=== PATIENT | male | born 1945 | race Caucasian/White ===

== ENCOUNTER 2017-09-14 11:36 | Emergency (ER) | payer OTHER ==
[~2017-09-14] VITALS: Ht 167.6 cm; Wt 77.6 kg
[~2017-09-14 11:36] MED LIST: ASPIR 8181 MG PO; FISH OIL 1,001000 M2 PO; GLIPIZIDE ER10 MG PO; GLUCOPHAGE XR500 MG PO; HYTRIN 5 M5 MG/1 CAP PO; JANUVIA 50 MG T50 M1 PO; MILK THISTLE500 MG PO; NAPROSYN500 MG PO; PRAVASTATIN SOD20 MG PO; TENORMIN25 MG PO; TRAMADOL 50 MG50 MG PO
[2017-09-14] MEDS ORDERED: NAPROSYN500 MG PO (11:50)
[2017-09-14] MEDS ORDERED: WELLBUTRIN SR150 MG PO (11:50)
[2017-09-14 11:53] LABS: ABSOLUTE BASOPHILS 0.1 thou/uL (0.0-0.2); ABSOLUTE MONOCYTES 0.4 thou/uL (0.0-1.2); ABSOLUTE NEUTROPHILS 6.3 thou/uL (1.6-8.1); BASOPHILS 0.7 %; EOSINOPHILS 0.3 %; HEMATOCRIT 46.7 % (42.0-52.0); HEMOGLOBIN 15.5 gm/dL (14.0-18.0); LYMPHOCYTES 13.1 %; MCH 28.6 pg (26.0-34.0); MCHC 33.2 g/dL (28.0-37.0); MCV 86.1 fL (80.0-100.0); MONOCYTES 5.6 %; MPV 9.1 fl. (7.2-11.1); NUCLEATED RBCS 0 /100WBC; PLATELET COUNT* 215 thou/uL (150-400); POLYS 80.3 %; RBC 5.42 mil/uL (4.50-6.00); WBC 7.9 thou/uL (4.0-11.0)
[2017-09-14 12:01] LABS: ANION GAP 10 mmol/L (7-16); BUN 23 mg/dL (7-18); CALCIUM 9.4 mg/dL (8.5-10.1); CHLORIDE 93 mmol/L (98-107); CO2 28 mmol/L (21-32); CREATININE 1.1 mg/dL (0.6-1.3); GLUCOSE 498 mg/dL (70-99); POTASSIUM 5.1 mmol/L (3.5-5.1); SODIUM 131 mmol/L (136-145)
[2017-09-14 12:03] LABS: APTT 29.4 Seconds (25.0-31.3)
[2017-09-14 12:08] LABS: ALBUMIN 3.1 g/dL (3.4-5.0); ALKALINE PHOSPHATASE 92 U/L (46-116); SGOT 13 U/L (15-37); SGPT 17 U/L (30-65); TOTAL BILIRUBIN 0.4 mg/dL (<0.1-1.0); TOTAL PROTEIN 6.9 g/dL (6.4-8.2); TROPONIN-I LEVEL <0.06 ng/mL (<0.06)
[2017-09-14 12:52] VITALS: BP 114/71
--- NOTE | 2017-09-14 16:43 | EKG ---
[place] [address] ELECTROCARDIOGRAM REPORT Name: JER MIRELES Room: [facility]#: [id number] Admission: 09/14/17 Attend Phys: Discharge: 09/14/17 Date of : 49 Report #: [id number] THIS REPORT FOR: //name// [facility] ED Test Date: 2017-09-14 Test Time: 11:44:59 Pat Name: JER MIRELES Department: Room: Gender: M Nursing Resident: Dre WEINER : 1945 Requested By: Glynn Wu Order Number: [id number] MD: Danny Loera Measurements Intervals [place] Rate: 80 P: 69 PA: 217 QRS: 31 QRSD: 79 T: -60 QT: 392 QTc: 453 Interpretive Statements Sinus rhythm Borderline prolonged PA interval Consider left ventricular hypertrophy Tall R wave in V2, consider RVH or PMI Borderline T abnormalities, inferior leads ST elevation, consider anterior injury Compared to ECG 01/05/2017 12:21:01 T-wave abnormality now present Myocardial infarct finding still present ST (T wave) deviation still present Electronically Signed On 09-14-2017 16:43:09 LOCKER PLANT ATTENDANT by Danny Loera [email or web address] <ELECTRONICALLY SIGNED> By: Danny Loera MD, FACC 09/14/17 1643 1144 1144 Danny Loera MD, [facility] /EPI
== END 2017-09-14 12:56 | disposition home or self-care (01) ==
LOC: M.ERS 11:36
PROVIDERS: Family Medicine
DX: R53.1 Weakness (principal); I10 Essential (primary) hypertension; E11.9 Type 2 diabetes mellitus without complications; E78.00 Pure hypercholesterolemia, unspecified; I25.10 Atherosclerotic heart disease of native coronary artery without angina pectoris; M19.90 Unspecified osteoarthritis, unspecified site; F17.200 Nicotine dependence, unspecified, uncomplicated; Z86.73 Personal history of transient ischemic attack (TIA), and cerebral infarction without residual deficits; Z88.0 Allergy status to penicillin

== ENCOUNTER 2020-03-15 07:40 | Emergency (ER) | payer OTHER ==
[~2020-03-15] VITALS: Ht 165.1 cm; Wt 80.7 kg
[~2020-03-15 07:40] MED LIST changes: +WELLBUTRIN SR150 MG PO
[2020-03-15] MEDS ORDERED: ZOFRAN ODT4 MG SUBLING (09:21)
[2020-03-15] MEDS ORDERED: PERCOCET 5-3251 EACH PO (09:21)
[2020-03-15 09:53] VITALS: BP 154/89
== END 2020-03-15 09:54 | disposition home or self-care (01) ==
LOC: M.ERS 07:40
DX: S32.010A Wedge compression fracture of first lumbar vertebra, initial encounter for closed fracture (principal); S32.020A Wedge compression fracture of second lumbar vertebra, initial encounter for closed fracture; I10 Essential (primary) hypertension; E11.9 Type 2 diabetes mellitus without complications; E78.00 Pure hypercholesterolemia, unspecified; Z86.73 Personal history of transient ischemic attack (TIA), and cerebral infarction without residual deficits; Z88.0 Allergy status to penicillin; W01.0XXA Fall on same level from slipping, tripping and stumbling without subsequent striking against object, initial encounter; Y93.89 Activity, other specified; Y92.89 Other specified places as the place of occurrence of the external cause; Y99.8 Other external cause status

== ENCOUNTER 2020-03-16 19:13 | Inpatient (IN) | payer OTHER ==
[~2020-03-16] VITALS: Ht 167.6 cm; Wt 76.2 kg
--- NOTE | ~2020-03-16 | PROC ---
[address] [address] PROCEDURE REPORT Name: JER MIRELES Room: [address] IN M.R.#: [id number] Admission: 03/16/20 Attend Phys: Reed Anderson MD Discharge: 04/01/20 Date of : 49 Report #: [id number] THIS REPORT FOR: //name// cc: Skylar Castellanos Jolie Rae DO ~ THIS REPORT FOR: //name// For GI report, please see the Provation report in Perceptive 7 content. By: 1056Medical Records Staff LORI /TOÑITO
[~2020-03-16 19:13] MED LIST changes: +PERCOCET 5-3251 EACH PO; +ZOFRAN ODT4 MG SUBLING
[2020-03-16 19:18] VITALS: BP 190/103
[2020-03-16 19:44] LABS: ABSOLUTE EOSINOPHILS 0.1 thou/uL (0.0-0.7); ABSOLUTE LYMPHOCYTES 0.9 thou/uL (0.8-5.3); ABSOLUTE MONOCYTES 0.7 thou/uL (0.0-1.2); ABSOLUTE NEUTROPHILS 5.7 thou/uL (1.6-8.1); BASOPHILS 0.5 %; EOSINOPHILS 1.3 %; HEMATOCRIT 45.6 % (42.0-52.0); HEMOGLOBIN 15.6 gm/dL (14.0-18.0); LYMPHOCYTES 12.5 %; MCH 28.4 pg (26.0-34.0); MCHC 34.2 g/dL (28.0-37.0); MONOCYTES 9.6 %; NUCLEATED RBCS 0 /100WBC; PLATELET COUNT* 197 thou/uL (150-400); POLYS 76.1 %; RDW-CV 15.5 % (10.5-14.5); WBC 7.5 thou/uL (4.0-11.0)
[2020-03-16 19:54] LABS: CALCIUM 9.3 mg/dL (8.5-10.1); INR 1.1
[2020-03-16 20:05] LABS: ALBUMIN 3.2 g/dL (3.4-5.0); TOTAL BILIRUBIN 0.8 mg/dL (<0.1-1.0); TOTAL PROTEIN 7.8 g/dL (6.4-8.2)
[2020-03-16 20:37] LABS: URINE BILIRUBIN NEGATIVE (Negative); URINE BLOOD 2+ (Negative); URINE CLARITY CLEAR; URINE COLOR YELLOW; URINE GLUCOSE-RANDOM NEGATIVE (Negative); URINE KETONES NEGATIVE (Negative); URINE LEUKOCYTES-REFLEX NEGATIVE (Negative); URINE NITRITE-REFLEX NEGATIVE (Negative); URINE PROTEIN TRACE (Negative); URINE SPECIFIC GRAVITY >= 1.030 (1.005-1.030)
[2020-03-16 20:45] LABS: BACTERIA-REFLEX 1-9 Few /HPF (None Seen); HYALINE CASTS 0-3 Few /LPF (None Seen); MUCUS None Seen strn/LPF (None Seen); SQUAMOUS 0-3 Few /LPF (0-3)
[2020-03-16 20:46] LABS: CRYSTALS None Seen /LPF (None Seen); URINE RBC 0-2 Rare /HPF (0-2); URINE WBC-REFLEX 0-5 Rare /HPF (0-5)
[2020-03-16 21:02] LABS: BE 3.7 mmol/L (-2 to +3); PCO2 47.6 mmHg (35.0-45.0); pH 7.408 (7.340-7.450)
[2020-03-16 21:03] LABS: PO2 52.8 mmHg (75.0-100.0)
[2020-03-17] VITALS (8 sets, daily range): BP systolic 147–202; BP diastolic 83–116
[2020-03-17 00:43] LABS: BE 2.2 mmol/L (-2 to +3); PO2 81.6 mmHg (75.0-100.0); pH 7.336 (7.340-7.450)
[2020-03-17 00:44] LABS: PCO2 56.6 mmHg (35.0-45.0)
[2020-03-17 12:11] LABS: ALBUMIN 2.8 g/dL (3.4-5.0); CALCIUM 8.8 mg/dL (8.5-10.1); CREATININE 0.8 mg/dL (0.6-1.3); MAGNESIUM 1.9 mg/dL (1.8-2.4); PHOSPHORUS* 2.9 mg/dL (2.5-4.9)
--- NOTE | 2020-03-17 12:39 | EKG ---
[place] [address] ELECTROCARDIOGRAM REPORT Name: JER MIRELES Room: [address] IN M.R.#: [id number] Admission: 03/16/20 Attend Phys: Reed Anderson, Discharge: Date of : 49 Date of Service: 03/16/201924 Report #: [id number] THIS REPORT FOR: //name// [facility] ED Test Date: 2020-03-16 Test Time: 19:25:32 Pat Name: JER MIRELES Department: Room: [facility] Gender: M Campus Recruiting Intern: JULIETA : 1945 Requested By: Nhi De Jesus Order Number: [id number] MD: Danny Loera Measurements Intervals [place] Rate: 98 P: 69 [place]: 190 QRS: 15 QRSD: 89 T: 168 QT: 347 QTc: 444 Interpretive Statements Sinus rhythm LAE, consider biatrial enlargement Abnormal R-wave progression, early transition LVH with secondary repolarization abnormality Baseline wander in lead(s) II,aVF Compared to ECG 09/14/2017 11:44:59 Early repolarization now present Myocardial infarct finding no longer present T-wave abnormality no longer present ST (T wave) deviation no longer present Electronically Signed On 03-17-2020 12:38:56 CDT by Danny Loera [email or web address] <ELECTRONICALLY SIGNED> By: Danny Loera MD, [facility] 03/17/20 1238 24 24 Danny Loera MD, [facility] /EPI
[2020-03-17 12:57] LABS: ABSOLUTE EOSINOPHILS 0.1 thou/uL (0.0-0.7); ABSOLUTE LYMPHOCYTES 0.7 thou/uL (0.8-5.3); ABSOLUTE MONOCYTES 0.8 thou/uL (0.0-1.2); ABSOLUTE NEUTROPHILS 5.7 thou/uL (1.6-8.1); BASOPHILS 0.2 %; EOSINOPHILS 0.8 %; HEMOGLOBIN 14.6 gm/dL (14.0-18.0); LYMPHOCYTES 9.8 %; MCH 28.2 pg (26.0-34.0); MCHC 33.8 g/dL (28.0-37.0); MCV 83.5 fL (80.0-100.0); MONOCYTES 10.8 %; MPV 9.5 fl. (7.2-11.1); NUCLEATED RBCS 0 /100WBC; PLATELET COUNT* 199 thou/uL (150-400); POLYS 78.4 %; RBC 5.15 mil/uL (4.50-6.00); RDW-CV 15.6 % (10.5-14.5); WBC 7.2 thou/uL (4.0-11.0)
[2020-03-17 13:01] LABS: CALCIUM 8.6 mg/dL (8.5-10.1); CREATININE 0.9 mg/dL (0.6-1.3)
[2020-03-17 13:06] LABS: ALBUMIN 2.8 g/dL (3.4-5.0); TOTAL BILIRUBIN 0.6 mg/dL (<0.1-1.0); TOTAL PROTEIN 6.8 g/dL (6.4-8.2)
--- NOTE | 2020-03-17 18:51 | NUR ---
PT VERY IMPULSIVE, CLIMBING OUT OF THE BED MULTIPLE TIMES TODAY. DOES NOT EMPTY BLADDER WELL WHEN LYING OR SITTING, STANDING HE DOES MUCH BETTER, CAN URINATE ABOUT 300 MLS EACH TIME. PT WITH IVF INFUSING, VSS. PT TO BE NPO AFTER MIDNIGHT FOR MRCP AND POSSIBLE KYPHOPLASTY.
[2020-03-18] VITALS (9 sets, daily range): BP systolic 141–198; BP diastolic 70–117
[2020-03-18 05:10] LABS: ABSOLUTE EOSINOPHILS 0.1 thou/uL (0.0-0.7); ABSOLUTE LYMPHOCYTES 1.1 thou/uL (0.8-5.3); ABSOLUTE MONOCYTES 0.9 thou/uL (0.0-1.2); ABSOLUTE NEUTROPHILS 6.5 thou/uL (1.6-8.1); BASOPHILS 0.4 %; EOSINOPHILS 0.7 %; HEMATOCRIT 46.2 % (42.0-52.0); HEMOGLOBIN 15.6 gm/dL (14.0-18.0); LYMPHOCYTES 12.6 %; MCH 28.3 pg (26.0-34.0); MCHC 33.8 g/dL (28.0-37.0); MCV 83.8 fL (80.0-100.0); MONOCYTES 10.1 %; NUCLEATED RBCS 0 /100WBC; PLATELET COUNT* 236 thou/uL (150-400); POLYS 76.2 %; RBC 5.52 mil/uL (4.50-6.00); RDW-CV 15.8 % (10.5-14.5); WBC 8.5 thou/uL (4.0-11.0)
[2020-03-18 05:46] LABS: ALBUMIN 3.4 g/dL (3.4-5.0); CREATININE 0.9 mg/dL (0.6-1.3); MAGNESIUM 1.9 mg/dL (1.8-2.4); POTASSIUM 3.4 mmol/L (3.5-5.1); TOTAL BILIRUBIN 0.9 mg/dL (<0.1-1.0); TOTAL PROTEIN 7.8 g/dL (6.4-8.2)
--- NOTE | 2020-03-18 12:23 | NUR ---
ASSUMED CARE OF PATIENT THIS AM AT 0730. PATIENT IS ALERT CONFUSED ORIENTED TO PERSON THIS AM. PATIENT WAS ATTEMPTING TO GET OUT OF THE BED. PATIENT PLACED ON 1;1 observation FOR PATIENT SAFETY. HE C/O PAIN TO HIS LEFT RIB AREA. PATIENT MEDICATED FOR PAIN IV X 1. PATIENT TAKEN DOWN PER W/C FOR MRCP AND MRI. PATIENT RETURNED TO ROOM. HIS IS IN AT THE BEDSIDE AT THIS TIME. PATIENT STATED THAT THE PAIN WAS LESS AFTER PAIN MEDICATION. IV FLUIDS RESUMED. TELE SHOWS SINUS TACHY. NO FALLS OR INJURY. O2 SATS DECREASE TO UPPER 80S TO LOW 90S WHEN PATIENT IS SLEEPING.
--- NOTE | 2020-03-18 15:14 | NUR ---
CM spoke with Pt's via phone. Pt resides at home with his . assists with bathing and grooming. Pt able to walk independently. Hx of falls. Pt has a walker, RW and wc at home. No home o2, thinks that Pt needs home o2, CM informed that Pt [place] be tested [place]2 needs [place]. Pt has a cpap. No hx of HH or SNF. Goal is home at [place]. Dr's PCP, is Dr Samayoa at [facility]. Following.
[2020-03-19 04:00] VITALS: BP 170/110
[2020-03-19 04:44] LABS: ABSOLUTE EOSINOPHILS 0.1 thou/uL (0.0-0.7); ABSOLUTE LYMPHOCYTES 0.8 thou/uL (0.8-5.3); ABSOLUTE MONOCYTES 0.7 thou/uL (0.0-1.2); ABSOLUTE NEUTROPHILS 5.5 thou/uL (1.6-8.1); BASOPHILS 0.4 %; EOSINOPHILS 1.4 %; HEMATOCRIT 42.3 % (42.0-52.0); HEMOGLOBIN 14.6 gm/dL (14.0-18.0); LYMPHOCYTES 11.6 %; MCH 28.2 pg (26.0-34.0); MCHC 34.4 g/dL (28.0-37.0); MCV 81.9 fL (80.0-100.0); MONOCYTES 9.4 %; NUCLEATED RBCS 0 /100WBC; PLATELET COUNT* 210 thou/uL (150-400); POLYS 77.2 %; RBC 5.17 mil/uL (4.50-6.00); RDW-CV 15.7 % (10.5-14.5); WBC 7.1 thou/uL (4.0-11.0)
[2020-03-19 04:55] LABS: ALBUMIN 2.7 g/dL (3.4-5.0); CALCIUM 8.3 mg/dL (8.5-10.1); CREATININE 0.7 mg/dL (0.6-1.3); MAGNESIUM 1.7 mg/dL (1.8-2.4); PHOSPHORUS* 2.5 mg/dL (2.5-4.9); POTASSIUM 3.3 mmol/L (3.5-5.1)
--- NOTE | 2020-03-19 07:20 | NUR ---
BP ELEVATED WITH Q4 CHECKS, MEDICATION GIVEN ACCORDINGLY. BP WNL WITH MEDICATION. WILL ADDRESS WITH ONCOMING SHIFT. SEE MAR. SEE CHARTING.
[2020-03-19 08:00] VITALS: BP 170/85
[2020-03-19 09:51] LABS: ALBUMIN 2.7 g/dL (3.4-5.0); CALCIUM 8.4 mg/dL (8.5-10.1); CREATININE 0.7 mg/dL (0.6-1.3); POTASSIUM 3.4 mmol/L (3.5-5.1); TOTAL BILIRUBIN 0.8 mg/dL (<0.1-1.0); TOTAL PROTEIN 6.7 g/dL (6.4-8.2)
[2020-03-19] MEDS ORDERED: TERAZOSIN HCL5 MG PO (10:16)
[2020-03-19] MEDS ORDERED: ATENOLOL 25MG T25 M1 PO (10:16)
[2020-03-19 11:30] VITALS: BP 163/93
[2020-03-19 16:00] VITALS: BP 177/102
--- NOTE | 2020-03-19 18:30 | NUR ---
PT PLEASANTLY CONFUSED THROUGHOUT SHIFT. PT UP IN ROOM AND HALLS WITH SB ASSIST. AT BS AND PARTICPATES IN CARE. KYPHOPLASTY RESCHEDULED FOR AM. PT AND UPDATED. PT TOLERATED CLEAR LIQUIDS THIS PM. DENIES N/V OR PAIN
[2020-03-19 20:00] VITALS: BP 161/107
[2020-03-20] VITALS: BP 160/75
[2020-03-20 04:00] VITALS: BP 168/65
[2020-03-20 04:26] LABS: ABSOLUTE EOSINOPHILS 0.1 thou/uL (0.0-0.7); ABSOLUTE MONOCYTES 0.7 thou/uL (0.0-1.2); ABSOLUTE NEUTROPHILS 4.6 thou/uL (1.6-8.1); BASOPHILS 0.6 %; EOSINOPHILS 2.1 %; HEMATOCRIT 44.3 % (42.0-52.0); HEMOGLOBIN 15.3 gm/dL (14.0-18.0); LYMPHOCYTES 14.8 %; MCH 28.5 pg (26.0-34.0); MCHC 34.6 g/dL (28.0-37.0); MCV 82.4 fL (80.0-100.0); MONOCYTES 11.4 %; MPV 9.3 fl. (7.2-11.1); NUCLEATED RBCS 0 /100WBC; PLATELET COUNT* 235 thou/uL (150-400); POLYS 71.1 %; RBC 5.38 mil/uL (4.50-6.00); RDW-CV 15.3 % (10.5-14.5); WBC 6.4 thou/uL (4.0-11.0)
[2020-03-20 04:44] LABS: ALBUMIN 2.8 g/dL (3.4-5.0); CALCIUM 8.2 mg/dL (8.5-10.1); CREATININE 0.8 mg/dL (0.6-1.3); POTASSIUM 3.4 mmol/L (3.5-5.1); TOTAL BILIRUBIN 0.8 mg/dL (<0.1-1.0); TOTAL PROTEIN 6.7 g/dL (6.4-8.2)
--- NOTE | 2020-03-20 05:49 | NUR ---
ASSUMED PATIENT CARE AT 1900. PATIENT ALERT TO SELF AND SITUATION. SPOUSE AT BEDSIDE. IV PATENT TO FLUIDS. IV PAIN MEDICATION GIVEN ONE TIME TO HELP WITH BACK PAIN. NO OTHER COMLAINTS. NPO AT THIS TIME FOR PROCEDURES TO BE DONE TODAY.
[2020-03-20 08:04] VITALS: BP 168/65
--- NOTE | 2020-03-20 12:51 | NUR ---
Per , Pt to have MRCP and EGD today. Surgery not planning any interventions. Pt had a kyphoplasty this morning. Plan lap harmony tomorrow. Plan is home with HH at or. CM asked to order and overnight ox, per , she thinks that Pt needs home o2. Following.
--- NOTE | 2020-03-20 15:58 | NUR ---
PT GOT OUT OF BED WHEN LEFT THE ROOM AND DRESSED HIMSELF,REMOVED IV AND CALIBRATION CHECKER. STATES HE IS READY TO GO HOME. PT ORIENTED TO NAME AND PLACE. EASILY REDIRECTED. PT PLACED IN A GOWN,IV REINSERTED
[2020-03-20 16:52] VITALS: BP 163/95
--- NOTE | 2020-03-20 17:39 | NUR ---
PT HAD KYPHOPLASTY,ERCP AND EGD TODAY. UP IN ROOM WITH SB ASSIST. AT BS AND PARTICIPATES IN CARE. TOLERATING PO WELL. DENIES PAIN. REFUSES IVF PT IS DRINKING. PLAN FOR LAP MIRIAN IN AM.
[2020-03-20 20:00] VITALS: BP 146/93
[2020-03-21] VITALS: BP 126/94
[2020-03-21 04:00] VITALS: BP 153/90
[2020-03-21 04:51] LABS: ABSOLUTE LYMPHOCYTES 0.5 thou/uL (0.8-5.3); ABSOLUTE MONOCYTES 0.6 thou/uL (0.0-1.2); ABSOLUTE NEUTROPHILS 5.2 thou/uL (1.6-8.1); BASOPHILS 0.2 %; EOSINOPHILS 0.1 %; HEMATOCRIT 40.3 % (42.0-52.0); HEMOGLOBIN 13.7 gm/dL (14.0-18.0); LYMPHOCYTES 8.1 %; MCH 28.1 pg (26.0-34.0); MCV 82.8 fL (80.0-100.0); MONOCYTES 8.9 %; MPV 9.3 fl. (7.2-11.1); NUCLEATED RBCS 0 /100WBC; PLATELET COUNT* 238 thou/uL (150-400); POLYS 82.7 %; RBC 4.88 mil/uL (4.50-6.00); RDW-CV 15.1 % (10.5-14.5); WBC 6.3 thou/uL (4.0-11.0)
[2020-03-21 05:00] LABS: ALBUMIN 2.7 g/dL (3.4-5.0); CALCIUM 8.5 mg/dL (8.5-10.1); CREATININE 0.8 mg/dL (0.6-1.3); POTASSIUM 4.4 mmol/L (3.5-5.1); TOTAL BILIRUBIN 0.5 mg/dL (<0.1-1.0); TOTAL PROTEIN 6.4 g/dL (6.4-8.2)
--- NOTE | 2020-03-21 06:39 | NUR ---
ASSUMED CARE OF PT AFTER REPORT AT 1930. PT A&OX3. NOT ORIENTED TO TIME. VSS. PHYSICAL ASSESSMENT COMPLETED AND CHARTED. PT ON O2 AT 2L NC. MAINTAINED ON CAPNO. PT TRACING SR ON TELE. PT DENIES ANY PAIN. AT BS. PT INSTRUCTED NPO POST MIDNIGHT FOR SURGERY TODAY. COMMUNICATES UNDERSTANDING. PT ABLE TO SLEEP WELL ON BED. CALL LIGHT WITHIN REACH.
--- NOTE | 2020-03-21 07:45 | NUR ---
assumed pt care at 0715 am. report received from nurse. pt is aox4. on 2 l nc. o2 saturation 96%. vss. sinus rythm on the registered nurse maternal child. right forearm iv found infiiltrated. iv was removed and cotton ball applied on site with tape to secure. pt has been npo since midnight. pt left unit on 07:45 for lap harmony surgery accompanied by two OR nurses.
[2020-03-21 08:00] VITALS: BP 139/80
--- NOTE | 2020-03-21 12:29 | OP ---
[address] [address] OPERATIVE REPORT Name: JER MIRELES Room: [address] IN .R.#: [id number] Admission: 03/16/20 Attend Phys: Reed Anderson MD Discharge: Date of : 49 Report #: [id number] THIS REPORT FOR: //name// cc: Skylar Castellanos Jolie Rae DO ~ THIS REPORT FOR: //name// CC: Reed Castellanos DO DICTATED BY: Albert Leon DO DATE OF SERVICE: 03/21/2020 PREOPERATIVE DIAGNOSES: Acute cholecystitis with cholelithiasis and elevated liver enzymes. POSTOPERATIVE DIAGNOSES: Acute cholecystitis with cholelithiasis and elevated liver enzymes with hydrops of the gallbladder. FINDINGS: Dense adhesions which inroads the entire right upper quadrant, distended gallbladder packed with stones, thick walled, bile was clear indicative of gallbladder hydrops. SURGEON: Carmenza Narvaez DO. CO-SURGEON: Albert Leon, PGY5 SENIOR CLINICAL CONSULTANT: AURORA Bianchi. OPERATION PERFORMED: Laparoscopic cholecystectomy with lysis of adhesions of 30 minutes. ANESTHESIA: General, local and transversus abdominis plane block. ESTIMATED BLOOD LOSS: 10 mL. SPECIMEN: Gallbladder. COMPLICATIONS: None. INDICATIONS: The patient is a 75-year-old male that presented to the Emergency Department with intractable vomiting, status post fall. He had acute lower back pain and underwent kyphoplasty by Interventional Radiology. His bile ducts were noted to be elevated in the setting of cholelithiasis. He underwent an MRCP [facility] [address] [place] [address] OPERATIVE REPORT Name: JER MIRELES Jass Room: [address] IN [facility].#: [id number] Admission: 03/16/20 Attend Phys: Reed Anderson MD Discharge: Date of : 49 Report #: [id number] that showed enlarged bile ducts. He subsequently underwent ERCP with GI and was found to have increased size of the bile ducts; however, there were no obstructing stones or sludge. He did receive a sphincterotomy. The patient was informed of the risks and benefits of laparoscopic cholecystectomy with risks including but not limited to bleeding, infection, injury to common bile duct, need for reoperation, hernia formation, chronic pain, and chronic diarrhea. He understood these and decided to proceed with surgery. TECHNIQUE: After informed consent was obtained, the patient was brought to the operating room and placed in supine position. SCDs were on and running. Preoperative clindamycin was delivered. General anesthesia was administered with an ET tube. He had a moderately edematous vocal cords. The ET tube was passed with some difficulty. He was prepped and draped in the usual sterile fashion. A surgical pause was held to confirm proper patient and procedure. Superior to the umbilicus, a 0.5% Marcaine was injected, 11 blade was used to incise the skin. Dissection was carried through the subcutaneous tissue using cautery. S retractors were used to bluntly dissect down to the fascia, which was elevated with 2 Kochers. Fascia was incised using cautery. Peritoneum was bluntly entered using a Natalia. A 0 Vicryl was used for stay sutures on either side of the fascia. Felicia trocar was introduced and the abdomen was insufflated. The camera was introduced into the abdomen. There were dense omental adhesions over the liver and over the entire right upper quadrant. The patient was positioned head up and right side up. An additional 3 ports, 5 mm in size were placed, 1 in the epigastrium and 2 in the right upper quadrant, all under direct visualization. Hook cautery was then used to take down the omental adhesions starting on the lateral aspect of the liver and then taking down some adhesions to the liver and to the falciform ligament. Once the gallbladder was visualized, it was distended, thick walled and obviously inflamed. It was encased in omental adhesions. These were taken down with the plane between the gallbladder and the liver due to inflammation in this area. A small hole was made in the most distal aspect of the dome of the gallbladder and immediate egress of hydropic fluid was noted. The omental adhesions were finally completely lysed using cautery and blunt dissection revealing the body of the gallbladder. This was elevated over the liver. The cystic artery was visible and tenting up the peritoneum over the gallbladder and was on top of the cystic duct by visual inspection. The peritoneum overlying the cystic triangle was incised using cautery. This plane was developed laterally until all the way up to the body of the gallbladder. Blunt dissection was then used to identify the cystic duct and cystic artery and circumferentially dissect them. Once the cystic duct and cystic artery were completely dissected and there was a critical view of safety with only 2 structures entering the gallbladder, the cystic artery was doubly clipped and cut using laparoscopic scissors. The cystic duct was noted to be large, but was small enough to be adequately ligated with the same clip machine maintenance technician, so it was doubly clipped and cut using laparoscopic aliyah. The gallbladder was then elevated and dissected free from the liver bed. Once completely excised from the liver bed, it was placed in an [place] [address] OPERATIVE REPORT Name: JER MIRELES Room: [address]#: [id number] Admission: 03/16/20 Attend Phys: Reed Anderson MD Discharge: Date of : 49 Report #: [id number] placed aside. The right upper quadrant was thoroughly irrigated and suctioned. Cautery was used to obtain hemostasis at the liver bed. Clips were intact. There was no bleeding or bile leak. The liver bed was completely hemostatic. The patient was positioned supine. The right upper quadrant was suctioned and irrigated. The abdomen was desufflated. All ports were removed under direct visualization, Felicia port was removed as was the specimen. Previous stay sutures were elevated and replaced with 2 Kochers. A single of [id number] using 0 Vicryl was used to close the fascia. Additional Marcaine was injected. All skin was closed using 4-0 Monocryl. Wounds were cleansed and dressed with Dermabond. All counts were correct. The patient was transferred to the PACU after extubation in stable condition. <ELECTRONICALLY SIGNED> By: Carmenza Narvaez DO 03/21/20 1229 1025 1107Chvimal Narvaez DO /nt
--- NOTE | 2020-03-21 12:51 | NUR ---
pt came back from surgery. on 2 lnc. o2 saturation 95% . vss. see chart. denies pain. pt is aox2 to self and person. a little drowsy. four lap sites look intact , dry, no drainage, no bleeding. accucheck performed. pt denies n/v. clear liqud diet given. po meds administered as ordered. at bedside. warm compress applied on right upper extremitiy to diminish the swelling from the iv infiltration.call light at reach. will continue to monitor
[2020-03-21 13:22] VITALS: BP 147/85
--- NOTE | 2020-03-21 14:44 | NUR ---
Pt having lap harmony today
[2020-03-21 17:09] VITALS: BP 147/87
[2020-03-21 20:30] VITALS: BP 138/78
[2020-03-22] VITALS (8 sets, daily range): BP systolic 145–187; BP diastolic 86–96
--- NOTE | 2020-03-22 03:41 | NUR ---
AT 0300 PT'S INFORMED ME THAT PT NEEDED PAIN MEDICINE. STATED THAT PT IS TOUCHING ABDOMEN AND REPORTING PAIN. PT REPORTS PT IS RESTLESS AND CONFUSED AND NEEDS PAIN MEDICINE. PT GIVEN PRN FENTANYL AND ZOFRAN PER REQUEST. PT DESTAT TO 79%. O2 APPLIED AT 2 LITERS AND TITRATED TO 4 LITERS. UNHAPPY WITH SAT MONITOR AND END TIDAL CO2 MONITOR ALLARMING CONTINUOUSLY. EXPRESSED FRUSTRATION ABOUT NOT BEING ABLE TO SLEEP AND STATED PT'S CONFUSION IS WORSE THAN IT WAS PRIOR TO ADMIT. PT'S O2 SAT ON 4 LITERS >94%.
--- NOTE | 2020-03-22 03:57 | NUR ---
PT REQUESTED SAT MONITORS BE REMOVED TO ALLOW PT MORE FREEDOM OF MOVEMENT. RT REMOVED END TIDAL CO2 MONITORING AND LEFT CONTINUOUS PULSE OX ON.
--- NOTE | 2020-03-22 04:15 | NUR ---
SPOKE WITH DR ERVIN REGARDING PT'S INCREASED CONFUSION. RECIEVED ORDER FOR STAT CT OF HEAD. INFORMED PT'S REGARDING CAT SCAN. PT STATED PT FELL AT HOME PRIOR TO ADMIT AND HIT HIS HEAD. ORDER PLACED IN COMPUTER AT THIS TIME.
[2020-03-22 05:04] LABS: ABSOLUTE LYMPHOCYTES 1.1 thou/uL (0.8-5.3); ABSOLUTE MONOCYTES 0.9 thou/uL (0.0-1.2); ABSOLUTE NEUTROPHILS 8.1 thou/uL (1.6-8.1); BASOPHILS 0.4 %; EOSINOPHILS 0.2 %; HEMATOCRIT 42.4 % (42.0-52.0); HEMOGLOBIN 14.2 gm/dL (14.0-18.0); LYMPHOCYTES 10.7 %; MCH 27.9 pg (26.0-34.0); MCHC 33.5 g/dL (28.0-37.0); MCV 83.1 fL (80.0-100.0); MONOCYTES 9.3 %; MPV 9.4 fl. (7.2-11.1); NUCLEATED RBCS 0 /100WBC; PLATELET COUNT* 276 thou/uL (150-400); POLYS 79.4 %; RDW-CV 15.5 % (10.5-14.5); WBC 10.2 thou/uL (4.0-11.0)
--- NOTE | 2020-03-22 05:07 | NUR ---
CHIEF DIGITAL MEDIA OFFICER SCAN INFORMED REGARDING STAT ORDER, WAITING TO TAKE PT DOWN. RT REPORTS THAT PT'S NOCTERNAL OXYMETRY INVALID TEST DUE TO PT BEING AWAKE AND RESTLESS ALL NIGHT.
[2020-03-22 05:23] LABS: ALBUMIN 2.9 g/dL (3.4-5.0); CALCIUM 8.4 mg/dL (8.5-10.1); POTASSIUM 3.9 mmol/L (3.5-5.1); TOTAL BILIRUBIN 0.5 mg/dL (<0.1-1.0); TOTAL PROTEIN 6.6 g/dL (6.4-8.2)
[2020-03-22 05:54] LABS: PREALBUMIN 17.2 mg/dL (18.0-35.7)
--- NOTE | 2020-03-22 11:49 | NUR ---
CM spoke with Pt and at bedside. Plan continues to be for Pt to dc home. Ex ox to be completed prior to dc, if Pt qualifies for home o2, CM to arrange through [employer] f:[phone]. HH to be arranged through [facility], only wants PT. Joturl p:[phone] f:[phone]
--- NOTE | 2020-03-22 17:10 | PATH ---
[address] [address] PATHOLOGY RPT PROCEDURE Name: JER JACOBSEN Room: [address] IN .R.#: [id number] Admission: 03/16/20 Date of : 49 Discharge: Report #: [id number] Path Case #: [id number] [facility] Accession Number: [id number] . 01 Material submitted: . duodenum - DUODENAL NODULE 1ST PORTION DUODENUM . 01 Clinical history: . None provided . 02 Diagnosis: "Duodenal nodules first portion duodenum", biopsy: - Small bowel/duodenal mucosa with marked duodenitis showing marked reactive/regenerative changes and gastric metaplasia; no definitive dysplasia seen. (CLW:[facility] 03/22/2020) [facility] 03/22/2020 1422 Local . 02 Comment: The case is co-reviewed with Dr. Osei Vale. Clinical and endoscopic correlation is recommended. (CLW:[facility] 03/22/2020) . 02 Electronically signed: . Ya Varela MD, Pathologist NPI- [id number] . 01 Gross description: . The specimen is received in formalin, labeled "Jer Jacobsen, duodenal nodules first portion duodenum" and consists of 3 fragments of pink-morrison tissue measuring between 0.2 x 0.2 cm and 0.3 x 0.3 cm which are entirely submitted in A1. (SDY; 03/21/2020) SYU/SYU 03/21/2020 1318 Local . 02 Pathologist provided ICD-10: K29.80 . 02 CPT . 090690 Specimen Comment: A courtesy copy of this report has been sent to [phone], [phone] Specimen Comment: [phone], Specimen Comment: Report sent to ,DR BAR / DR DILLON Performed at: [address] [facility], [place] [id number] MD Reagan Rubio MD Phone: [phone] [place] [address] PATHOLOGY RPT PROCEDURE Name: JER JACOBSEN Room: [address] IN ..#: [id number] Admission: 03/16/20 Date of : 49 Discharge: Report #: [id number] Path Case #: [id number] Performed at: [facility] [address], [place] [id number] MD Alexander Vora MD Phone: [phone]
--- NOTE | 2020-03-22 17:10 | PATH ---
[address] [address] PATHOLOGY RPT PROCEDURE Name: JER JACOBSEN Room: [address] IN .R.#: [id number] Admission: 03/16/20 Date of : 49 Discharge: Report #: [id number] Path Case #: [id number] [facility] Accession Number: [id number] . 01 Material submitted: . gallbladder - GALLBLADDER . 01 Clinical history: . Acute cholecystitis with elevated liver enzymes . 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 - Cholelithiasis. - Lymph node with hyperplasia. . (CLW:mml; 03/22/2020) [facility] 03/22/2020 1157 Local . 02 Electronically signed: . Ya Varela MD, Pathologist NPI- [id number] . 01 Gross description: . The specimen is received in formalin labeled "Jer Jacobsen, gallbladder" and consists of a deflated pink morrison gallbladder measuring 7.9 x 3.8 x 1.5 cm. The margin is inked black. Opening reveals a lumen filled with clear viscous material and multiple intact to fragmented yellow orange calculi measuring up to 2.9 cm. The largest grossly occlude the proximal aspect. The mucosa is pink-morrison and smooth to pitted with an average wall thickness of 0.2 cm. No masses are identified. Adjacent the gallbladder neck is a lymph node measuring 0.8 cm. Climatologist sections are submitted in A1-A2. (SDY; 03/21/2020) SYU/SYU 03/22/2020 1157 Local . 02 Pathologist provided ICD-10: K80.12 . 02 CPT . 343832 Specimen Comment: A courtesy copy of this report has been sent to [phone], 9[facility] Specimen Comment: [phone], Specimen Comment: Report sent to ,DR BAR / DR DILLON Performed at: [address] [facility] [id number] [place] [address] PATHOLOGY RPT PROCEDURE Name: JER JACOBSEN Room: [address] IN [facility].#: [id number] Admission: 03/16/20 Date of : 49 Discharge: Report #: [id number] Path Case #: [id number] MD Reagan Rubio MD Phone: [phone] Performed at: 02 [facility] [place] [address] Dobson, [place] [id number] MD Alexander Vora MD Phone: [phone]
--- NOTE | 2020-03-22 19:59 | NUR ---
PT. VSS, AOX3, SR ON MONITOR, PAIN UNDER CONTROL. WITH SPOUSE AT BEDSIDE. UP WITH ASSIST PER PT. PLAN TO D/C TOMORROW WITH HOME O2. CALL LIGHT AND PERSONAL BELONGINGS PLACED WITHIN REACH. PT. IN BED, WITH SPOUSE AT BEDSIDE, IN NO APPARENT DISCOMFORT, AT SHIFT CHANGE.
[2020-03-22 23:21] LABS: ABSOLUTE LYMPHOCYTES 0.5 thou/uL (0.8-5.3); ABSOLUTE MONOCYTES 0.9 thou/uL (0.0-1.2); ABSOLUTE NEUTROPHILS 7.9 thou/uL (1.6-8.1); BASOPHILS 0.2 %; EOSINOPHILS 0.3 %; HEMATOCRIT 48.7 % (42.0-52.0); MCH 28.3 pg (26.0-34.0); MCHC 34.1 g/dL (28.0-37.0); MONOCYTES 9.9 %; MPV 8.7 fl. (7.2-11.1); NUCLEATED RBCS 0 /100WBC; PLATELET COUNT* 323 thou/uL (150-400); POLYS 84.6 %; RBC 5.86 mil/uL (4.50-6.00); RDW-CV 15.9 % (10.5-14.5); WBC 9.4 thou/uL (4.0-11.0)
[2020-03-22 23:23] LABS: HEMOGLOBIN 16.6 gm/dL (14.0-18.0)
[2020-03-22 23:25] LABS: CREATININE 0.9 mg/dL (0.6-1.3); POTASSIUM 4.4 mmol/L (3.5-5.1)
[2020-03-22 23:29] LABS: ALBUMIN 2.8 g/dL (3.4-5.0); MAGNESIUM 1.5 mg/dL (1.8-2.4); PHOSPHORUS* 3.9 mg/dL (2.5-4.9); TOTAL BILIRUBIN 0.6 mg/dL (<0.1-1.0); TOTAL PROTEIN 6.7 g/dL (6.4-8.2)
[2020-03-23] VITALS (7 sets, daily range): BP systolic 80–134; BP diastolic 50–77
[2020-03-23 05:18] LABS: BE -3.8 mmol/L (-2 to +3); PCO2 34.9 mmHg (35.0-45.0); PO2 92.8 mmHg (75.0-100.0); pH 7.383 (7.340-7.450)
--- NOTE | 2020-03-23 08:04 | NUR ---
ASSUMED CARE OF PT AFTER REPORT AT 1930. PT A&OX3. FORGETFUL. PHYSICAL ASSESSMENT COMPLETED AND CHARTED. PT COMPLAINED OF ABDOMINAL DISTENTION AND VOMITING GREENISH OUTPUT. SURGERY CONSULTED WITH NEW ORDERS. ABDOMINAL XRAY SHOW SMALL BOWEL OBSTRUCTION. NGT INSERTED WITH 1100 GREENISH OUTPUT WITHIN 15 MINS. PT O2 SAT 83-87% ON O2 AT 2L NC. PLACED PT ON HIGH FLOW NC 15L AND NONREBREATHER 15L-O2 SAT 90-93%. PT GARGLY & CRACKLES HEARD- LASIX GIVEN. PER , PT HAD DECREASED URINE OUTPUT STARTED LAST NIGHT- MORRISSEY CATHETER IN PLACE. PLACED ON NPO. MAGNESIUM 1.5. ELECTROLYTE PROTOCOL IN PLACE. STAYED AT BS. CALL LIGHT WITHIN REACH.
[2020-03-23 18:47] LABS: PCO2 45.8 mmHg (35.0-45.0); pH 7.409 (7.340-7.450)
[2020-03-23 18:50] LABS: PO2 58.6 mmHg (75.0-100.0)
--- NOTE | 2020-03-23 19:35 | NUR ---
PATIENT RESTING IN BED. UP TI BEDSIDE COMMODE WITH ASSIST X1. 15 L PER NASAL CANULA AND 15 L PER NON-REBREATHER MASK. LOW URINE OUTPUT. LABS, ABG, CLINICAL PRESENTATION REPORTED TO PRIMARY CARE. HOURLY RPOURNDING COMPLETED FOR PATINET SAFETY. PATINET DID SELF DC NG TUBE TODAY, SURGERY NOTIFIED AND ORDERS RECEIVED FOR IMMAGING AND INTERVENTIONS, NG REPLACED WITH XRAY VERIFICATION.
[2020-03-23 19:51] LABS: HEMATOCRIT 44.4 % (42.0-52.0); MCH 28.1 pg (26.0-34.0); MCHC 33.7 g/dL (28.0-37.0); MCV 83.4 fL (80.0-100.0); MPV 9.3 fl. (7.2-11.1); RBC 5.33 mil/uL (4.50-6.00); WBC 6.1 thou/uL (4.0-11.0)
[2020-03-23 20:00] LABS: CALCIUM 9.3 mg/dL (8.5-10.1); POTASSIUM 4.7 mmol/L (3.5-5.1)
[2020-03-24] VITALS (28 sets, daily range): BP systolic 98–150; BP diastolic 46–89
[2020-03-24 00:38] LABS: MAGNESIUM 1.7 mg/dL (1.8-2.4)
[2020-03-24 02:25] LABS: URINE BLOOD 3+ (Negative); URINE CLARITY TURBID; URINE COLOR RED; URINE GLUCOSE-RANDOM NEGATIVE (Negative); URINE KETONES TRACE (Negative); URINE LEUKOCYTES NEGATIVE (Negative); URINE NITRITE POSITIVE (Negative); URINE PROTEIN 3+ (Negative); URINE SPECIFIC GRAVITY >= 1.030 (1.005-1.030)
[2020-03-24 02:27] LABS: URINE BILIRUBIN 2+ (Negative)
[2020-03-24 02:29] LABS: ICTOTEST (BILI CONFIRMATORY) Negative (Negative)
[2020-03-24 02:38] LABS: HYALINE CASTS 0-3 Few /LPF (None Seen); SQUAMOUS NONE SEEN /LPF (0-3)
[2020-03-24 02:39] LABS: CRYSTALS None Seen /LPF (None Seen); URINE RBC >20 Many /HPF (0-2); URINE WBC 0-5 Rare /HPF (0-5)
--- NOTE | 2020-03-24 08:26 | NUR ---
PATIENT ARRIVED TO UNIT AT 1999. PATIENT'S AND OTHER FAMILY ARRIVED TO ICU AHEAD OF THE PATIENT AND WERE DIRECTED TO THE ICU WAITING ROOM UNITL SOMEONE CAME TO GET THEM. AT 2099, PULMONARY TELE-MED ROUNDS BEGAN. STATUS UPDATE GIVEN TO DR. GIBBONS ALONGSIDE RESPIRATORY THERAPY. THE PATIENT'S WAS RETRIEVED FROM THE WAITING ROOM AND BROUGHT TO BEDSIDE. CALLED SURGERY TO NOTIFY THE PATIENT HAD BEEN MOVED TO ICU. DR. DUKES WAS EN ROUTE TO ICU AT THAT POINT. A CONFERENCE WAS HELD BETWEEN THE AIR BRAKE TESTER, RT, DR. GIBBONS, DR. DUKES, AND THE PATIENT'S AT THE BEDSIDE DISCUSSING THE PATIENT'S CONDITION AND THE POSSIBLE COURSES AND OUTCOMES. NO CLEAR DECISION WAS REACHED AT THE END OF THIS CONFERENCE. DR. MEDNENHALL WAS CALLED TO THE BEDSIDE BY DR. DUKES. A FURTHER DISCUSSION WAS HELD BETWEEN THE SURGEONS AND THE FAMILY. AT THE TIME OF THE END OF THE DISCUSSION, NO CLEAR DECISION ON THE PATH FORWARD WAS MADE. SHORTLY BEFORE 0100, THE RETURNED TO THE BEDSIDE AND TOLD THIS RN THAT THEY WOULD BE PURSUING COMFORT CARE FOR THE PATIENT. THIS RN SPOKE WITH DR. ALVAREZ, DR. DUKES, AND DR. GIBBONS AT LENGTH ABOUT THE DPOA'S DECISION. COMFORT CARE ORDERS WERE PUT INTO EFFECT BY DR. DUKES. DR. ALVAREZ REQUESTED TO KEEP ALL TREATMENTS AND MEDICATIONS ON BOARD UNTIL HAVING FURTHER DISCUSSION WITH THE FAMILY IN THE AM. OXYGEN WEANED DOWN TO 4L SLOWLY PER FAMILY REQUEST. PATIENT'S , WHO IS ALSO DPOA, HAS BEEN REFUSING MEDICATIONS AND INTERVENTIONS FOR THE PATIENT. PATIENT IS LETHARGIC, FORGETFUL AND CONFUSED. HE IS UNABLE TO APPROPRIATELY MAKE ANY MEDICAL DECISIONS AT THIS TIME. THE ONLY MEDICATIONS THE DPOA IS ALLOWING TO BE GIVEN ARE PAIN AND NAUSEA MEDICATIONS. DPOA REQUESTED MORRISSEY BE REMOVED. REMOVAL WAS DONE. PATIENT IS NOW URINATING ON HIMSELF, THE BED, AND THE FLOOR WITH NO CONTROL OF HIS BLADDER. PATIENT BECAME MORE IMPULSIVE NEAR THE END OF THE SHIFT AND BEGAN PULLING AT HIS OXYGEN AND NG. PATIENT DISCONTINUED HIS NG TUBE. SPOKE WITH DR. DUKES AND DR. ALVAREZ, WILL REPLACE NG TUBE ON DAY SHIFT. PATIENT THEN DISCONTINUED ONE OF HIS IV'S. REMAINS AT BEDSIDE. THE HAS CONSISTENTLY BEEN EXPRESSING HER DISSATISFACTION WITH HOSPITAL STAFF THROUGHOUT THE NIGHT. ALL APPROPRIATE PARTIES NOTIFIED OF BEHAVIOR. DR. ALVAREZ DISCUSSED CONCERNS AT LENGTH WITH HER AT BEDSIDE THIS AM. PATIENT REMAINS COMFORT CARE WITH SOME EXCEPTIONS.
[2020-03-24 10:26] LABS: HEMATOCRIT 39.2 % (42.0-52.0); HEMOGLOBIN 13.1 gm/dL (14.0-18.0); MCHC 33.4 g/dL (28.0-37.0); MCV 83.9 fL (80.0-100.0); MPV 9.2 fl. (7.2-11.1); NUCLEATED RBCS 0 /100WBC; PLATELET COUNT* 234 thou/uL (150-400); RBC 4.67 mil/uL (4.50-6.00); RDW-CV 15.8 % (10.5-14.5); WBC 6.2 thou/uL (4.0-11.0)
[2020-03-24 10:40] LABS: CALCIUM 8.6 mg/dL (8.5-10.1); CREATININE 1.8 mg/dL (0.6-1.3); POTASSIUM 4.2 mmol/L (3.5-5.1); TOTAL BILIRUBIN 0.5 mg/dL (<0.1-1.0); TOTAL PROTEIN 5.7 g/dL (6.4-8.2)
[2020-03-24 10:57] LABS: ABSOLUTE LYMPHOCYTES 0.2 thou/uL (0.8-5.3); ABSOLUTE MONOCYTES 0.2 thou/uL (0.0-1.2); ABSOLUTE NEUTROPHILS 5.8 thou/uL (1.6-8.1); PLATELET ESTIMATE ADEQUATE
--- NOTE | 2020-03-24 12:40 | NUR ---
ANDREA PT AND DPOA HAS BEEN MAKING DECISIONS FOR PT DUE TO PT BEING AMS CAN NOT DETERMINE IF SHE WANTS COMFORT CARE OR FULL CARE SHE HAS STATED SHE WANTS PARTIAL CARE SHE IS OKAY WITH PAIN MEDICATION AND BLOOD DRAWS BECAUSE SHE WANTS TO KNOW WHAT IS GOING ON SHE HAS REFUSED MEDICATION FOR PT (PT IS UNABLE TO SWALLOW PER ASPIRATION RISK) AND ACCU CHECKS STATES SHE DOES NOT WANT ANTIBIOTICS BC IT WILL CAUSE C-DIFF KEEPS STATING OVER AND OVER SHE IS COMING AFTER THE HOSPITAL FOR NEGLECT OF PT CARE FROM THE DOCOTRS AND TELEY NURSES THAT HE HAS LAID IN BED FOR 4 DAYS AND NOONE HAS DONE ANYTHING SHE HAS STATED SHE CAME IN FOR BOWEL OBSTRUCTION AND NOONE DID ANYTHING ABOUT IT PT WAS ADMITTED FOR VOMITING HTN AND LOWER LUMBAR COMPRESSION FX THAT WASN'T URGENT AND COULD BE DONE OUT PT. PT WENT HOME STARTED VOMITING BILE AND WAS BROUGHT BACK VIA THE THE BACK SURGERY WAS COMPLETED. THIS MORNING PT PULLED OUT NG TUBE PER STATED SHE WANTED IT PUT BACK IN THEN CHANGED HER MIND SAID NO, THEN YES AND FINALLY WENT WITH NO RADHA SOLIS RT A WITNESS TO THE CONVERSATION. WATCHMAKER APPRENTICE, PHYSICIANS ON CASE, CASE MGMT AND RISK MGMT ALL AWARE OF SITUATION
--- NOTE | 2020-03-24 19:41 | NUR ---
PT AND FAMILY DECIDED TO GO WITH ICU CARE NO PROCEDURES REFUSED MORRISSEY TRIED PLACING NG TUBE PT REFUSED AND PULLED OUT TUBE DURING INSERTION BOUNDARIES SET WITH VISTORS AT THE WINDOW AND IN ROOM ONLY
--- NOTE | 2020-03-24 20:06 | NUR ---
received report from chikis bravo from day shift. Physical assessment completed on pt. He is alert times one with his name and is otherwise non verbal. Chest is coarse in the bases. sats 88%- 91% on 4lnc. o2 increased to 6l. he would benefit from a fm instead as a mouth breather. has been interfereing with all levels/aspects of care. I will change to the mask if his condition warrants. currently heavily sleeping/snoring in a chair at bedside. Will continue to give supportive care as indicated and allowed
[2020-03-25] VITALS (39 sets, daily range): BP systolic 110–177; BP diastolic 56–112
[2020-03-25 04:54] LABS: ABSOLUTE LYMPHOCYTES 0.2 thou/uL (0.8-5.3); ABSOLUTE MONOCYTES 0.3 thou/uL (0.0-1.2); ABSOLUTE NEUTROPHILS 5.3 thou/uL (1.6-8.1); BASOPHILS 0.1 %; HEMATOCRIT 39.6 % (42.0-52.0); HEMOGLOBIN 13.1 gm/dL (14.0-18.0); LYMPHOCYTES 2.9 %; MCH 27.8 pg (26.0-34.0); MCHC 33.2 g/dL (28.0-37.0); MCV 83.7 fL (80.0-100.0); MONOCYTES 5.5 %; MPV 8.9 fl. (7.2-11.1); NUCLEATED RBCS 0 /100WBC; PLATELET COUNT* 247 thou/uL (150-400); POLYS 91.5 %; RBC 4.73 mil/uL (4.50-6.00); RDW-CV 15.6 % (10.5-14.5); WBC 5.8 thou/uL (4.0-11.0)
[2020-03-25 05:02] LABS: CALCIUM 9.1 mg/dL (8.5-10.1); CREATININE 1.3 mg/dL (0.6-1.3); POTASSIUM 3.9 mmol/L (3.5-5.1); TOTAL BILIRUBIN 0.4 mg/dL (<0.1-1.0); TOTAL PROTEIN 6.3 g/dL (6.4-8.2)
[2020-03-25 05:27] LABS: PREALBUMIN 10.4 mg/dL (18.0-35.7)
--- NOTE | 2020-03-25 06:41 | NUR ---
PATIENT VITALS STABLE THIS SHIFT. SLEPT INTERMITTENTLY. OXYGEN INCREASED TO 6LNC FOR SATS 88%. HE HAS MAINTAINED >93% ON 6L. CHEST IS COARSE AND DECREASED APICES TO BASES. THICK COARSE COUGH WITHOUT EXPECTORATION. HE IS CONFUSED MOST OF THE TIME AND PULLS ON LINES, GOWN,ETC AND TRIES TO LEAVE THE BED. SR ON THE MONITOR. INCONTINENT OF STOOL ONCE AND URINE 4 TIMES. TREATED WITH ZOFRAN ONCE FOR C/O NAUSEA WITH PARTIAL RELIEF. AT THE BEDSIDE MOST OF THE NIGHT. SHE LEFT THREE TIMES TO WALK.
--- NOTE | 2020-03-25 14:04 | NUR ---
ICU rounds: Pt tranferred to ICU over the weekend. Comfort care initiated at some point, does not appear that Pt is currently comfort care. Sitter at bedside. in room. Pt pulled NG tube out. Following
--- NOTE | 2020-03-25 15:15 | CON ---
[address] [address] CONSULTATION Name: CHIJER Jass Room: [address] IN [facility]#: [id number] Admission: 03/16/20 Attend Phys: Reed Anderson MD Discharge: Date of : 49 Report #: [id number] THIS REPORT FOR: //name// cc: Skylar Castellanos Jolie Rae DO ~ THIS REPORT FOR: //name// CC: Reed Castellanos DATE OF SERVICE: 03/17/2020 REFERRING PHYSICIAN: Reed Anderson MD REASON FOR CONSULTATION: Recurrent nausea and vomiting. IMPRESSION: 1. Anorexia with early satiety, nausea, vomiting and abdominal pain with an abnormal CAT scan -- evaluate for possible gastric outlet obstruction. 2. Dilated intra and extrahepatic ducts of uncertain etiology. 3. Recent compression fracture of L1-L2. 4. Hypercarbic hypoxemic respiratory failure. 5. Personal history of colon polyps with last examination being done 5 years ago at [place] -- large polyp removed with no colonoscopies done since that time. 6. Dementia. RECOMMENDATIONS: 1. We will keep the patient n.p.o. at this time. 2. We will check a stat KUB to ensure the patient does not have gastric distention. 3. Depending on results of KUB, the patient may need to have an upper endoscopy today and possible placement of an NG tube to decompress the stomach. 4. We will proceed with an MRCP once the patient is able to lay flat and not have any issues with regurgitation or aspiration. 5. Depending on what we find with MRCP, he may need to have an ERCP with biliary sphincterotomy, biliary brushings, and placement of biliary stent until we get him to undergo endoscopic ultrasound to evaluate for source of obstruction if necessary. 6. I have contacted the patient's , Ashleigh ([phone]), regarding all these issues and will contact her again once I have the results back from today's KUB and labs. HISTORY OF PRESENT ILLNESS: The patient is a 75-year-old white male with history of stroke and left-sided weakness in the past, diabetes, [place] [address] CONSULTATION Name: CHIJER L Room: [address] IN [facility]#: [id number] Admission: 03/16/20 Attend Phys: Reed Anderson MD Discharge: Date of : 49 Report #: [id number] emergency room because of intractable vomiting. The patient is a poor historian at this point in time and so for this reason, I contacted the patient's . She has been concerned about him because he has not really been eating as well as he should be and has lost probably 15 pounds. She states he is not really complaining of anything, but he has been hiding food that she thought he was eating. The patient has no prior history of any problems related to his upper GI tract in the past. Because he has not been eating, he has not also been going to the bathroom very well. He has also been getting more confused over the last several months. He is admitted to the hospital for further evaluation and treatment. ALLERGIES: PENICILLIN. MEDICATIONS: At home include oxycodone, tramadol, aspirin, milk thistle, pravastatin, bupropion, naproxen, terazosin, atenolol, and fish oil. PAST MEDICAL HISTORY: Remarkable for underlying hypertension, diabetes, hyperlipidemia, has had previous heart disease with previous myocardial infarction in the past. He also had a stroke. He has also got some problem with chronic arthritis and joint aches and pains. SOCIAL HISTORY: The patient is a former smoker, does not drink alcohol. FAMILY HISTORY: Unknown. PHYSICAL EXAMINATION: GENERAL: Revealed a 75-year-old gentleman who is currently on 2 liters of oxygen. CARDIOPULMONARY: Revealed a regular rate and rhythm. He is tachycardic. LUNGS: Coarse. ABDOMEN: Soft and mildly tender in epigastric area. No rebound or guarding noted. LABORATORY DATA: From the revealed a white count of 7.2, hemoglobin 14.6, platelet count 199,000, MCV is 83.5, and RDW is 15.6. His sodium 134, potassium 4.0, chloride 98, bicarbonate is 32, his BUN is 16, creatinine 0.8. His albumin is 2.8. Bilirubin 0.8, alkaline phosphatase 257, AST 91, ALT 254. The patient did undergo a CT scan of the abdomen and pelvis on 03/16/2020 which was reviewed. He has dilated loops. He has dilation of both his intra and extrahepatic ducts all the way and it appeared to be a cutoff towards the distal end of his bile duct. This could represent either a small pancreatic head mass or noncalcified stone causing distal obstruction. There was also diffuse pancreatic atrophy. I did not see any dilation of the pancreatic duct. Spleen is normal in size. He does have a lot of stool noted throughout the colon. His stomach is massively, is a very dilated with large [place] [address] CONSULTATION Name: JER MIRELES Room: [address]#: [id number] Admission: 03/16/20 Attend Phys: Reed Anderson MD Discharge: Date of : 49 Report #: [id number] stomach. He does have some diverticular disease within the left colon without diverticula. DISCUSSION: At the present time, the patient has had recurrent nausea, vomiting, and has abnormal CAT scan suggesting that he may have gastric outlet obstruction. We will proceed with stat KUB and possibly an EGD tonight. I have discussed the plans with the patient's as well and she is agreeable to the same. <ELECTRONICALLY SIGNED> By: Edwardo Coley DO 03/25/20 1515 1938 10Edwardo Coley DO /nt
--- NOTE | 2020-03-25 15:20 | 2DMMODE ---
[place] [address] 2 D/M-MODE ECHOCARDIOGRAM Name: JER MIRELES Jass Room: [address] IN [facility]#: [id number] Admission: 03/16/20 Attend Phys: Reed Anderson, Discharge: Date of : 49 Date of Service: 03/25/20 1519 Report #: [id number] THIS REPORT FOR: cc: Skylar Castellanos,Skylar Lemus,Efe Zuñiga MD [facility] ~ APPROVED REPORT Study performed: 03/25/2020 14:09:58 EXAM: Comprehensive 2D, Doppler, and color-flow Echocardiogram Patient Location: In-Patient Room #: 003 Status: routine BSA: 1.86 HR: 98 bpm BP: 144/67 mmHg Rhythm: NSR Other Information Study Quality: Good Indications Dyspnea Hypertension/HDD 2D Dimensions IVSd: 11.10 (7-11mm) LVOT Diam: 20.85 (18-24mm) LVDd: 49.52 mm PWd: 10.22 (7-11mm) Ascending Ao: 29.38 (22-36mm) LVDs: 36.02 (25-40mm) Aortic Root: 32.83 mm Volumes Left Atrial Volume (Systole) LA ESV Index: 48.80 mL/m2 Aortic Valve AoV Peak Mynor.: 1.60 m/s AO Peak Gr.: 10.20 mmHg LVOT Max P.78 mmHg AO Mean Gr.: 6.55 mmHg LVOT Mean P.27 mmHg LVOT Max V: 1.09 m/s AO V2 VTI: 27.33 cm LVOT Mean V: 0.69 m/s ABI (VTI): 2.22 cm2 LVOT V1 VTI: 17.79 [place] [address] 2 D/M-MODE ECHOCARDIOGRAM Name: JER MIRELES Room: [address] IN [facility].#: [id number] Admission: 03/16/20 Attend Phys: Reed Anderson, Discharge: Date of : 49 Date of Service: 03/25/20 1519 Report #: [id number] Mitral Valve E/A Ratio: 0.77 MV Decel. Time: 123.98 ms MV E Max Mynor.: 0.84 m/s MV PHT: 35.96 ms MVA (PHT): 6.12 cm2 TDI E/Lateral E': 10.50 E/Medial E': 16.80 Medial E' Mynor.: 0.05 m/s Lateral E' Mynor.: 0.08 m/s Pulmonary Valve PV Peak Mynor.: 0.94 m/s PV Peak Gr.: 3.54 mmHg Tricuspid Valve RAP Estimate: 5.00 mmHg TR Peak Gr.: 32.00 mmHg RVSP: 37.00 mmHg PA Pressure: 37.00 mmHg Left Ventricle Left ventricle is mildly dilated. There is global hypokinesis of the left ventricle. There is normal left ventricular wall thickness. Left ventricular systolic function is severely decreased. LVEF is 20-25%. Grade I - abnormal relaxation pattern. Right Ventricle The right ventricle is normal size. The right ventricular systolic function is normal. Atria Left atrium is severely dilated. The right atrium size is normal. Aortic Valve Mild aortic valve sclerosis. No aortic regurgitation is present. There is no aortic valvular stenosis. Mitral Valve There is mitral annular calcification. Trace mitral regurgitation. No evidence of mitral valve stenosis. Tricuspid Valve The tricuspid valve is normal in structure. Mild tricuspid regurgitation. estimated pa pressure 40 [place] [address] 2 D/M-MODE ECHOCARDIOGRAM Name: JER MIRELES Room: [address]#: [id number] Admission: 03/16/20 Attend Phys: Reed Anderson, Discharge: Date of : 49 Date of Service: 03/25/20 1519 Report #: [id number] Pulmonic Valve The pulmonary valve is normal in structure. There is no pulmonic valvular regurgitation. Great Vessels The aortic root is normal in size. IVC is normal in size and collapses >50% with inspiration. Pericardium There is no pericardial effusion. <Conclusion> Left ventricle is mildly dilated. LVEF is 20-25%. Left atrium is severely dilated. Mild aortic valve sclerosis. Mild tricuspid regurgitation. estimated pa pressure 40 mm Hg <ELECTRONICALLY SIGNED> By: Efe Leach MD, FACC 03/25/20 1519 1519 151 Efe Leach MD, FACC /INF
[2020-03-25 16:34] LABS: CALCIUM 8.8 mg/dL (8.5-10.1); CREATININE 1.2 mg/dL (0.6-1.3); MAGNESIUM 2.3 mg/dL (1.8-2.4); POTASSIUM 4.2 mmol/L (3.5-5.1); TOTAL BILIRUBIN 0.4 mg/dL (<0.1-1.0); TOTAL PROTEIN 5.9 g/dL (6.4-8.2)
--- NOTE | 2020-03-25 17:41 | NUR ---
PATIENT PROGRESSED SOMEWHAT WELL TOWARDS GOALS. HAS NOT HAD A BOWEL MOVEMENT THIS SHIFT YET BUT HAS RECEIVED MULTIPLE DIFFERNT MEDICATIONS TO HELP PROGRESS GASTROINTESTINAL MOTILITIY. NG TUBE REMAINS IN PLACE WITH SITTER UNTIL RETURNS AFTER 2100 TONIGHT. PATIENT AXOX4 AND FORGETFUL. NO PAIN, NAUSEA OR SHORTNESS OF AIR. BED IN LOWEST POSITON, CALL LIGHT IN REACH, DIRECTOR GOVERNMENT IN PLACE.
[2020-03-26] VITALS (11 sets, daily range): BP systolic 134–172; BP diastolic 77–102
[2020-03-26 05:15] LABS: ABSOLUTE LYMPHOCYTES 0.2 thou/uL (0.8-5.3); ABSOLUTE MONOCYTES 0.3 thou/uL (0.0-1.2); BASOPHILS 0.2 %; HEMATOCRIT 37.5 % (42.0-52.0); HEMOGLOBIN 12.5 gm/dL (14.0-18.0); LYMPHOCYTES 2.9 %; MCH 27.7 pg (26.0-34.0); MCHC 33.2 g/dL (28.0-37.0); MCV 83.7 fL (80.0-100.0); MONOCYTES 4.7 %; NUCLEATED RBCS 0 /100WBC; PLATELET COUNT* 226 thou/uL (150-400); POLYS 92.2 %; RBC 4.49 mil/uL (4.50-6.00); RDW-CV 15.6 % (10.5-14.5); WBC 6.6 thou/uL (4.0-11.0)
[2020-03-26 05:27] LABS: PREALBUMIN 13.5 mg/dL (18.0-35.7)
[2020-03-26 05:35] LABS: CALCIUM 8.4 mg/dL (8.5-10.1); CREATININE 1.2 mg/dL (0.6-1.3); POTASSIUM 4.2 mmol/L (3.5-5.1); TOTAL BILIRUBIN 0.3 mg/dL (<0.1-1.0); TOTAL PROTEIN 5.8 g/dL (6.4-8.2)
--- NOTE | 2020-03-26 06:34 | NUR ---
VITALS STABLE, AFEBRILE. PT DID NOT SLEEP THROUGH THE NIGHT. PULLS NG OUT A LITTLE FROM TIME TO TIME, BUT OTHERWISE ABLE TO STAY CALM. ORIENTED X4, FORGETFUL AT TIMES. HE REPORTS SEEING "A MOUSE RAN ACROSS THE ROOM", BUT WAS ABLE TO STATE HE IS PROBABLY JUST SEEING THINGS. ABLE TO MAKE PLENTY URINE, INCONTINENT AT TIMES. NO BM. 50CC BILE FROM NG. OTHERWISE UNEVENTFUL NIGHT, REFUSES TURNS MOST OF THE TIME. ABLE TO USE CALL LIGHT APPROPRIATELY. REMAINS AT BEDSIDE. WILL CONTINUE MONITORING.
--- NOTE | 2020-03-26 09:15 | NUR ---
0708 ASSUMED CARE OF PATIENT. PLEASE SEE DOCUMENTED ASSESSMENT. SPOUSE IS AT BEDSIDE. NPO WITH NG TO LIS.
--- NOTE | 2020-03-26 09:16 | NUR ---
0845 UP TO BS AFTER SUPPOSITORY AND HAD SMALL SOFT BROWN STOOL.
--- NOTE | 2020-03-26 09:16 | NUR ---
0800 DR ALVAREZ HERE AND SPOKE WITH SPOUSE AND PATIENT. PLAN OF CARE FORMULATED. PT IS NOW TELE STATUS.
--- NOTE | 2020-03-26 14:43 | NUR ---
ICU rounds: Pt on 5, will need to requalify for home o2 at dc. Oriented but forgetful. Sm BM this morning.
[2020-03-26 16:35] LABS: CREATININE 1.3 mg/dL (0.6-1.3); POTASSIUM 3.8 mmol/L (3.5-5.1)
--- NOTE | 2020-03-26 17:40 | NUR ---
PATIENT HAS MADE SOME PROGRESS TOWARDS GOALS. NOW TELE STATUS. VSS. WAS ABLE TO TOLERATE NG BEING CLAMPED MOST OF THE DAY EVEN WITH CONTRAST FOR SMALL BOWEL SERIES WHICH WILL BE COMPLETED IN AM. HAS NOW COMPLAINED OF FEELING LIKE HE WANTED TO THROW UP. NG RETURNED TO SUCTION WHICH IS RETURNING LARGE AMOUNT OF BILE. CONTACTED DR ALVAREZ WHO SAID TO KEEP IT TO SUCTION TONIGHT. PATIENT HAS HAD BOWEL MOVEMENT. SPOUSE AT BEDSIDE MOST OF DAY AND UPDATED ON PLAN OF CARE.
[2020-03-27] VITALS (8 sets, daily range): BP systolic 122–171; BP diastolic 74–107
[2020-03-27 04:53] LABS: ABSOLUTE LYMPHOCYTES 0.3 thou/uL (0.8-5.3); ABSOLUTE MONOCYTES 0.8 thou/uL (0.0-1.2); BASOPHILS 0.1 %; HEMATOCRIT 41.1 % (42.0-52.0); HEMOGLOBIN 13.9 gm/dL (14.0-18.0); LYMPHOCYTES 3.7 %; MCH 27.9 pg (26.0-34.0); MCHC 33.8 g/dL (28.0-37.0); MCV 82.5 fL (80.0-100.0); MONOCYTES 8.4 %; MPV 8.7 fl. (7.2-11.1); NUCLEATED RBCS 0 /100WBC; PLATELET COUNT* 247 thou/uL (150-400); POLYS 87.8 %; RBC 4.98 mil/uL (4.50-6.00); RDW-CV 15.7 % (10.5-14.5); WBC 9.1 thou/uL (4.0-11.0)
[2020-03-27 05:17] LABS: PREALBUMIN 18.3 mg/dL (18.0-35.7)
[2020-03-27 05:27] LABS: ALBUMIN 2.4 g/dL (3.4-5.0); CALCIUM 8.9 mg/dL (8.5-10.1); CREATININE 1.1 mg/dL (0.6-1.3); MAGNESIUM 1.8 mg/dL (1.8-2.4); TOTAL BILIRUBIN 0.5 mg/dL (<0.1-1.0); TOTAL PROTEIN 6.2 g/dL (6.4-8.2)
--- NOTE | 2020-03-27 06:02 | NUR ---
VITALS STABLE, AFEBRILE. PT EXTREMLEY CONFUSED, TRYING TO GET OUT OF BED AND PULLING ON TUBES CONSTANTLY. ABLE TO GET OUT OF BED AND WALK AROUND THE [place], INCREASED OXYGEN DEMAND AND TIME TO RECOVER. BM X2, MODERATE AND UNFORMED. MULTIPLE EPISODES OF INCONTINENCE TO URINE. 100CC NG OUTPUT, BILE. Q2 TURNS FOR SKIN INTEGRITY. CALL LIGHT WITHIN REACH, BED ALARM ON. WILL CONTINUE MONITORING.
--- NOTE | 2020-03-27 15:24 | NUR ---
ICU rounds: Tele status. DNR/DNI. RT will need to reassess for home o2 closer to dc. NG clamped. Drinking fluids, advance diet. Pt has had a BM.
--- NOTE | 2020-03-27 18:34 | NUR ---
ASSESSMENT CHARTED. VSS. NG TUBE CLAMPED AT 0800 AND TOLERATED WATER THROUGHOUT THE DAY. NO COMPLAINTS OF N/V. DIET ORDERED FOR CLEAR LIQUIDS TONIGHT AND WILL EVALUATE IN THE MORNING. PATIENT TOLERATED CLEAR LIQUID DINNER WITHOUT DIFFICULTY. NO COMPLAINTS OF PAIN. UP WITH ASSISTANCE TO THE BEDSIDE COMMODE AND CHAIR. PHYSICAL THERAPY HAD PATIENT OUT WALKING IN THE HALLS. NO OTHER COMPLAINTS DURING THIS SHIFT.
--- NOTE | 2020-03-27 22:36 | NUR ---
PATIENT COMPLAINING OF NAUSEA AT THIS TIME. ZOFRAN GIVEN, NG TO LIS.
[2020-03-28] VITALS (8 sets, daily range): BP systolic 116–141; BP diastolic 73–93
[2020-03-28 05:07] LABS: HEMATOCRIT 42.8 % (42.0-52.0); HEMOGLOBIN 14.3 gm/dL (14.0-18.0); MCH 27.5 pg (26.0-34.0); MCHC 33.3 g/dL (28.0-37.0); MCV 82.5 fL (80.0-100.0); MPV 9.3 fl. (7.2-11.1); NUCLEATED RBCS 0 /100WBC; PLATELET COUNT* 257 thou/uL (150-400); RBC 5.19 mil/uL (4.50-6.00); RDW-CV 15.7 % (10.5-14.5); WBC 15.6 thou/uL (4.0-11.0)
[2020-03-28 05:24] LABS: ALBUMIN 2.3 g/dL (3.4-5.0); CALCIUM 8.4 mg/dL (8.5-10.1); CREATININE 0.9 mg/dL (0.6-1.3); POTASSIUM 3.5 mmol/L (3.5-5.1); TOTAL BILIRUBIN 0.7 mg/dL (<0.1-1.0); TOTAL PROTEIN 5.8 g/dL (6.4-8.2)
[2020-03-28 05:55] LABS: ABSOLUTE LYMPHOCYTES 2.3 thou/uL (0.8-5.3); ABSOLUTE MONOCYTES 0.9 thou/uL (0.0-1.2); ABSOLUTE NEUTROPHILS 12.3 thou/uL (1.6-8.1); ANISOCYTOSIS 1+; PLATELET ESTIMATE ADEQUATE; POIKILOCYTOSIS 1+
--- NOTE | 2020-03-28 06:39 | NUR ---
VITALS STABLE, AFEBRILE. NAUSEA FOR A BRIEF MOMENT, RESOLVED WITH MEDS. NG CLAMPED, NO OUTPUT WHEN IT WAS TO LIS. NO BM, PLENTY UOP. PT INCONTINENT AT TIMES, ASKS FOR URINAL AT OTHERS. OTHERWISE UNEVENTFUL NIGHT. Q2 TURNS FOR SKIN INTEGRITY. BED IN LOWEST POSITION, ALARM ON. CALL LIGHT WITHIN REACH. WILL CONTINUE MONITORING.
[2020-03-28] MEDS ORDERED: ASA81BEC PO (13:33)
[2020-03-28] MEDS ORDERED: METFORMIN HCL500 M3 PO (13:34)
[2020-03-28] MEDS ORDERED: PRAVASTATIN SOD20 MG PO (13:35)
--- NOTE | 2020-03-28 15:12 | NUR ---
ICU rounds: NG out. Eating. Pt will need to be retested for home o2 at dc. Possible dc to home tomorrow.
--- NOTE | 2020-03-28 18:08 | NUR ---
ASSESSMENT CHARTED. VSS THROUGHOUT SHIFT. UP TO CHAIR FOR MEALS. DIET ADVANCED TO SOFT AND PATIENT IS TOLERATING WITHOUT DIFFICULTY. NO COMPLAINTS OF NAUSEA OR VOMITING. NG TUBE REMOVED THIS MORNING PER ORDER. NO COMPLAINTS OF PAIN. IV SALINE LOCKED. 1X DOSE OF LASIX GIVEN. PATIENT HAS BEEN INCONTINENT SEVERAL TIMES, SO UNABLE TO GET AN ACCURATE I&O. NO OTHER EVENTS DURING THIS SHIFT.
[2020-03-28 20:26] LABS: BE 6.6 mmol/L (-2 to +3); PCO2 42.4 mmHg (35.0-45.0)
[2020-03-28 20:30] LABS: PO2 56.7 mmHg (75.0-100.0)
[2020-03-29] VITALS (31 sets, daily range): BP systolic 103–152; BP diastolic 43–88
[2020-03-29 03:41] LABS: ABSOLUTE EOSINOPHILS 0.1 thou/uL (0.0-0.7); ABSOLUTE LYMPHOCYTES 0.8 thou/uL (0.8-5.3); ABSOLUTE MONOCYTES 0.9 thou/uL (0.0-1.2); ABSOLUTE NEUTROPHILS 10.7 thou/uL (1.6-8.1); BASOPHILS 0.1 %; EOSINOPHILS 0.4 %; HEMATOCRIT 43.6 % (42.0-52.0); HEMOGLOBIN 14.3 gm/dL (14.0-18.0); LYMPHOCYTES 6.7 %; MCH 27.1 pg (26.0-34.0); MCHC 32.9 g/dL (28.0-37.0); MCV 82.6 fL (80.0-100.0); MONOCYTES 7.3 %; NUCLEATED RBCS 0 /100WBC; PLATELET COUNT* 231 thou/uL (150-400); POLYS 85.5 %; RBC 5.28 mil/uL (4.50-6.00); RDW-CV 15.6 % (10.5-14.5); WBC 12.6 thou/uL (4.0-11.0)
[2020-03-29 03:54] LABS: ALBUMIN 2.3 g/dL (3.4-5.0); ALKALINE PHOSPHATASE 76 U/L (46-116); ANION GAP 4 mmol/L (7-16); BUN 22 mg/dL (7-18); CALCIUM 8.6 mg/dL (8.5-10.1); CHLORIDE 99 mmol/L (98-107); CHOLESTEROL 82 mg/dL (<200); CO2 32 mmol/L (21-32); CREATININE 1.2 mg/dL (0.6-1.3); GLUCOSE 137 mg/dL (70-99); HDL CHOLESTEROL 34 mg/dL (>40); LDL CHOLESTEROL 30 mg/dL (<100); MAGNESIUM 1.5 mg/dL (1.8-2.4); POTASSIUM 4.6 mmol/L (3.5-5.1); SGOT 20 U/L (15-37); SGPT 22 U/L (30-65); SODIUM 135 mmol/L (136-145); TC:HDL 2.4 Ratio (Not establshd); TOTAL BILIRUBIN 0.6 mg/dL (<0.1-1.0); TOTAL PROTEIN 5.8 g/dL (6.4-8.2); TRIGLYCERIDE 90 mg/dL (<150); VLDL 18 mg/dL (<40)
[2020-03-29 04:04] LABS: SERUM ASSESSMENT CLEAR
[2020-03-29 04:14] LABS: PREALBUMIN 23.5 mg/dL (18.0-35.7)
--- NOTE | 2020-03-29 07:20 | NUR ---
ASSUMED PATIENT CARE AT 1900. ASSESSMENTS COMPLETED CHARTED. CARDIAC MONITORING IN PLACE FOR PATIENT SAFETY. EARLY DURING SHIFT, PATIENT BEGAN TO DESAT, OXYGEN VIA NC INCREASED TO 4L. THIS DID NOT INCREASE HIS O2 SATURATION. RT CALLED, PATIENT PUT ON HFNC AND NRB MASK, PHYSICIAN NOTIFIED, NEW ORDERS RECEIVED, SEE CHART FOR DETAILS. PATIENT PUT ON BIPAP PER PHYSICIAN'S ORDERS, O2 SATURATION IMPROVED, SEE PATIENT CHART FOR DETAILS. FALL PRECAUTIONS IN PLACE FOR PATIENT SAFETY. BED LOCKED AND IN LOWEST POSITION. CLWR. PATIENT SPOUSE AT BEDSIDE DURING NIGHT.
--- NOTE | 2020-03-29 11:01 | NUR ---
0730 ASSUMED CARE OF PATIENT. PLEASE SEE DOCUMENTED ASSESSMENT. DR ALVAREZ HERE AND SPEAKING WITH SPOUSE.
--- NOTE | 2020-03-29 11:02 | NUR ---
DOBUTAMINE STARTED ORDERED. PT IS NOW ICU STATUS
--- NOTE | 2020-03-29 15:47 | NUR ---
ICU rounds: ICU status. Pt now on a dobutamine gtt per cardiology. Cm to discuss dispo with , home with HH vs hospice.
--- NOTE | 2020-03-29 17:41 | NUR ---
PATIENT PROGRESSING TOWARDS GOALS ALTHOUGH RETURNED TO ICU STATUS SECONDARY TO DOBUTAMINE INFUSION. PT BECAME TACHYCARDIC AT 5 MCG/KG/MN SO HAS MAINTAINED AT 2.5 MCG/KG HOUR. TOLERATED FOOD. HAS BEEN OUT OF BED TWICE. BOWELS HAVE MOVED. HAS REMAINED OFF BIPAP. FOUND ONCE WITH HIS OXYGEN OFF BUT O2 SAT WAS 91-92%. SPOUSE HAS BEEN PRESENT MOST OF THE DAY.
[2020-03-30] VITALS (18 sets, daily range): BP systolic 125–159; BP diastolic 47–90
[2020-03-30 03:59] LABS: ABSOLUTE EOSINOPHILS 0.1 thou/uL (0.0-0.7); ABSOLUTE LYMPHOCYTES 0.5 thou/uL (0.8-5.3); ABSOLUTE MONOCYTES 0.4 thou/uL (0.0-1.2); BASOPHILS 0.2 %; EOSINOPHILS 0.8 %; HEMATOCRIT 40.6 % (42.0-52.0); HEMOGLOBIN 13.8 gm/dL (14.0-18.0); LYMPHOCYTES 5.3 %; MCH 27.7 pg (26.0-34.0); MCHC 33.9 g/dL (28.0-37.0); MCV 81.7 fL (80.0-100.0); MONOCYTES 3.9 %; MPV 9.1 fl. (7.2-11.1); NUCLEATED RBCS 0 /100WBC; PLATELET COUNT* 214 thou/uL (150-400); POLYS 89.8 %; RBC 4.97 mil/uL (4.50-6.00); RDW-CV 15.2 % (10.5-14.5)
[2020-03-30 04:21] LABS: ALBUMIN 2.2 g/dL (3.4-5.0); CALCIUM 8.1 mg/dL (8.5-10.1); CREATININE 1.1 mg/dL (0.6-1.3); MAGNESIUM 1.8 mg/dL (1.8-2.4); POTASSIUM 4.6 mmol/L (3.5-5.1); TOTAL BILIRUBIN 0.5 mg/dL (<0.1-1.0); TOTAL PROTEIN 5.7 g/dL (6.4-8.2)
--- NOTE | 2020-03-30 04:41 | NUR ---
ASSUMED PATIENT CARE AT 1900. ASSESSMENTS COMPLETED CHARTED. CARDIAC MONITORING IN PLACE. PATIENT WORE BIPAP MOST OF SHIFT UNTIL COMPLAING OF DISCOMFORT AND REQUESTING THAT IT BE TAKEN OFF AROUND 0400. FALL PRECAUTIONS IN PLACE FOR PATIENT SAFETY. BED LOCKED AND IN LOWEST POSITION. CLWR.
--- NOTE | 2020-03-30 18:02 | NUR ---
PATIENT SOMEWHAT PROGRESSING TOWARDS GOALS. ABLE TO GET UP IN THE CHAIR FOR EVERY MEAL THIS SHIFT AND CONTINUES TO WORK ON INCENTIVE SPIROMETER. UNABLE TO WEAN DOWN ON O2 REQUIREMENTS AT THIS TIME, PATIENT SATING AT 90% MOST OF SHIFT ON 10 LITERS NASAL CANULA. NO PAIN ALL OF SHIFT, SOME NAUSEA EARLY AFTERNOON, ZOFRAN HELPED. NO SHORTNESS OF BREATH REPORTS AT THIS TIME. STATES PATIENT WILL GO HOME ON WEDNESDAY WITH HOSPICE NO MATTER WHAT. CASE MANAGEMENT WILL NEED TO PLAN FOR HOPSICE FIRST THING Wednesday. BED IN LOWEST POSITION, CALL LIGHT IN REACH. MARRIAGE COUNSELOR IN PLACE. REFUSES BED AND CHAIR ALARM AT THIS TIME SINCE SHE IS IN THE ROOM.
[2020-03-31] VITALS (13 sets, daily range): BP systolic 136–168; BP diastolic 74–112
[2020-03-31 03:54] LABS: ABSOLUTE LYMPHOCYTES 0.6 thou/uL (0.8-5.3); ABSOLUTE MONOCYTES 0.4 thou/uL (0.0-1.2); BASOPHILS 0.4 %; EOSINOPHILS 0.1 %; HEMATOCRIT 40.2 % (42.0-52.0); HEMOGLOBIN 13.4 gm/dL (14.0-18.0); LYMPHOCYTES 5.9 %; MCH 27.6 pg (26.0-34.0); MCHC 33.3 g/dL (28.0-37.0); MCV 82.8 fL (80.0-100.0); MONOCYTES 4.1 %; MPV 8.9 fl. (7.2-11.1); NUCLEATED RBCS 0 /100WBC; PLATELET COUNT* 229 thou/uL (150-400); POLYS 89.5 %; RBC 4.86 mil/uL (4.50-6.00); RDW-CV 15.5 % (10.5-14.5)
[2020-03-31 04:11] LABS: ALBUMIN 2.1 g/dL (3.4-5.0); CALCIUM 7.9 mg/dL (8.5-10.1); POTASSIUM 4.7 mmol/L (3.5-5.1); TOTAL BILIRUBIN 0.4 mg/dL (<0.1-1.0); TOTAL PROTEIN 5.4 g/dL (6.4-8.2)
[2020-03-31 04:17] LABS: PREALBUMIN 24.9 mg/dL (18.0-35.7)
--- NOTE | 2020-03-31 04:27 | NUR ---
PT. TOLERATED BIPAP FROM [id number]. 10L HI-NORA ON AT THIS TIME. PT. ORIENTED THROUGHOUT SHIFT. REMAINED AT BEDSIDE THROUGHOUT SHIFT. PT. DENIED PAIN. CONTINENT OF URINE, NO BOWEL MOVEMENT. IV'S SALINE LOCKED AT THIS TIME. CALL LIGHT WITHIN REACH, WILL CONTINUE TO MONITOR.
--- NOTE | 2020-03-31 18:27 | NUR ---
I ASSUMED CARE OF THE PATIENT AT 0700. HE IS ALERT AND ORIENTED X4 AND IS UP WITH ASSIST OF ONE TO THE CHAIR AND COMMODE. BED IS IN THE LOW LOCKED POSITION AND CALL LIGHT IS IN REACH. HOURLY ROUNDING IS COMPLETED AND PATIENT NEEDS ARE MET. PAIN IS DENIED. HE IS MAINTAINING AN OXYGEN SATURATION OF 95% ON 10 LITERS NASAL CANNULA. HE IS USING THE URINAL APPROPRIATELY. LINENS WERE CHANGED AND A COMPLETE BED BATH WAS GIVEN. IS AT THE BEDSIDE MOST OF THE DAY. SUGAR IS MONITORED AND CONTROLLED WITH INSULIN. PATIENT IS EXPECTING TO GO HOME ON WEDNESDAY WITH HOSPICE CARE. WILL CONTINUE TO MONITOR. HE WAS REPOSITIONED EVERY 2 HOURS.
[2020-04-01] VITALS (11 sets, daily range): BP systolic 125–187; BP diastolic 65–103
[2020-04-01 04:52] LABS: HEMATOCRIT 40.7 % (42.0-52.0); HEMOGLOBIN 13.9 gm/dL (14.0-18.0); MCH 28.1 pg (26.0-34.0); MCHC 34.2 g/dL (28.0-37.0); MCV 82.1 fL (80.0-100.0); MPV 9.1 fl. (7.2-11.1); NUCLEATED RBCS 0 /100WBC; PLATELET COUNT* 241 thou/uL (150-400); RBC 4.96 mil/uL (4.50-6.00); RDW-CV 15.5 % (10.5-14.5); WBC 9.3 thou/uL (4.0-11.0)
[2020-04-01 05:05] LABS: CALCIUM 7.9 mg/dL (8.5-10.1); CREATININE 0.9 mg/dL (0.6-1.3); POTASSIUM 4.7 mmol/L (3.5-5.1)
--- NOTE | 2020-04-01 05:06 | NUR ---
VITALS STABLE, AFEBRILE. PT ON BIPAP THROUGH MOST OF THE NIGHT. DOES NOT WANT IT ON AND CONSTANTLY TAKING IT OFF FACE, SPO2 REMAINS 99-100%. 2000CC UOP, NO BM THIS SHIFT. PATIENT DENIES PAIN, NAUSEA. Q2 TURNS FOR SKIN INTEGRITY. CALL LIGHT WITHIN REACH. REMAINS AT BEDSIDE. WILL CONTINUE MONITORING.
[2020-04-01 05:56] LABS: ABSOLUTE LYMPHOCYTES 0.7 thou/uL (0.8-5.3); ABSOLUTE MONOCYTES 0.2 thou/uL (0.0-1.2); ABSOLUTE NEUTROPHILS 8.5 thou/uL (1.6-8.1); PLATELET ESTIMATE ADEQUATE
[2020-04-01 05:57] LABS: ANISOCYTOSIS 1+; POIKILOCYTOSIS 1+
[2020-04-01] MEDS ORDERED: PROAIR HFA8.5 GM INH (08:17)
[2020-04-01] MEDS ORDERED: PROTONIX40 M1 PO (08:17)
[2020-04-01] MEDS ORDERED: CARVEDILOL3.125 MG PO (08:17)
[2020-04-01] MEDS ORDERED: LEVAQUIN 500 M500 M3 PO (08:17)
[2020-04-01] MEDS ORDERED: LISINOPRIL2.5 MG PO (08:17)
[2020-04-01] MEDS ORDERED: PREDNISONE 10 M10 MG PO (08:17)
[2020-04-01] MEDS ORDERED: REGLAN 5 MG TAB5 MG PO (08:20)
--- NOTE | 2020-04-01 11:42 | NUR ---
Plan dc to home today with [facility], Shannon from [facility] here to eval and arrange delivery of home DME. Shannon to let Cm know when DME will be delivered, plan wc van transport post delivery of DME. CM provided clinical info to Shannon. in room and in agreement with POC. [facility] p:[phone] [phone]
--- NOTE | 2020-04-01 15:18 | NUR ---
ASSESSMENT CHARTED. VSS THROUGHOUT SHIFT. DISCHARGE PAPERWORK GONE OVER WITH . SCRIPTS SENT TO PHARMACY, CALLED AND VERIFIED. NO EVENTS DURING THIS SHIFT. DISCHARGED HOME WITH HOSPICE AT 1500,
== END 2020-04-01 15:00 | disposition hospice, home (50) | DRG 515 ==
LOC: M.ERS 19:13 → M.2W 22:55 → M.TBA-ER 22:55 → M.2W 03-17 01:31 → M.ICU 03-23 20:08
PROVIDERS: Emergency Medicine; Family Medicine; Internal Medicine; Internal Medicine Critical Care Medicine; Internal Medicine Gastroenterology; Internal Medicine Nephrology; Nurse Practitioner Adult Health; ADMIT Internal Medicine; ATTEND Internal Medicine
PROC: 0DB98ZX Excision of Duodenum, Via Natural or Artificial Opening Endoscopic, Diagnostic (ICD-10-PCS; principal; 2020-03-19)
PROC: 0F798ZZ Dilation of Common Bile Duct, Via Natural or Artificial Opening Endoscopic (ICD-10-PCS; principal; 2020-03-19)
PROC: 0QS03ZZ Reposition Lumbar Vertebra, Percutaneous Approach (ICD-10-PCS; 2020-03-20)
PROC: 0QU03JZ Supplement Lumbar Vertebra with Synthetic Substitute, Percutaneous Approach (ICD-10-PCS; 2020-03-20)
PROC: 0FT44ZZ Resection of Gallbladder, Percutaneous Endoscopic Approach (ICD-10-PCS; 2020-03-21)
PROC: 0DNU4ZZ Release Omentum, Percutaneous Endoscopic Approach (ICD-10-PCS; 2020-03-21)
PROC: 0D9670Z Drainage of Stomach with Drainage Device, Via Natural or Artificial Opening (ICD-10-PCS; 2020-03-24)
PROC: 5A09357 Assistance with Respiratory Ventilation, Less than 24 Consecutive Hours, Continuous Positive Airway Pressure (ICD-10-PCS; 2020-03-30)
PROC: 5A09357 Assistance with Respiratory Ventilation, Less than 24 Consecutive Hours, Continuous Positive Airway Pressure (ICD-10-PCS; 2020-03-31)
PROC: 5A09357 Assistance with Respiratory Ventilation, Less than 24 Consecutive Hours, Continuous Positive Airway Pressure (ICD-10-PCS; 2020-04-01)
DX: S32.010A Wedge compression fracture of first lumbar vertebra, initial encounter for closed fracture (principal); J69.0 Pneumonitis due to inhalation of food and vomit; A41.9 Sepsis, unspecified organism; J96.01 Acute respiratory failure with hypoxia; J96.02 Acute respiratory failure with hypercapnia; N17.0 Acute kidney failure with tubular necrosis; I50.23 Acute on chronic systolic (congestive) heart failure; K80.00 Calculus of gallbladder with acute cholecystitis without obstruction; E44.1 Mild protein-calorie malnutrition; G93.40 Encephalopathy, unspecified; K56.7 Ileus, unspecified; I42.9 Cardiomyopathy, unspecified; J98.11 Atelectasis; K56.600 Partial intestinal obstruction, unspecified as to cause; I69.354 Hemiplegia and hemiparesis following cerebral infarction affecting left non-dominant side; S32.020A Wedge compression fracture of second lumbar vertebra, initial encounter for closed fracture; Z20.828 Contact with and (suspected) exposure to other viral communicable diseases; E11.9 Type 2 diabetes mellitus without complications; E78.00 Pure hypercholesterolemia, unspecified; M19.90 Unspecified osteoarthritis, unspecified site; F03.90 Unspecified dementia, unspecified severity, without behavioral disturbance, psychotic disturbance, mood disturbance, and anxiety; I25.10 Atherosclerotic heart disease of native coronary artery without angina pectoris; G47.33 Obstructive sleep apnea (adult) (pediatric); G89.29 Other chronic pain; I11.0 Hypertensive heart disease with heart failure; M54.9 Dorsalgia, unspecified; Z66 Do not resuscitate; Z51.5 Encounter for palliative care; I25.2 Old myocardial infarction; Z88.0 Allergy status to penicillin; Z86.010 Personal history of colon polyps; Z87.891 Personal history of nicotine dependence; Z91.19 Patient's noncompliance with other medical treatment and regimen; Z68.27 Body mass index [BMI] 27.0-27.9, adult; I69.322 Dysarthria following cerebral infarction; Z95.5 Presence of coronary angioplasty implant and graft; W01.0XXA Fall on same level from slipping, tripping and stumbling without subsequent striking against object, initial encounter; Y93.89 Activity, other specified; Y92.098 Other place in other non-institutional residence as the place of occurrence of the external cause; Y99.8 Other external cause status